=== PATIENT | male | born 1980 | race African-American/Black ===

== ENCOUNTER → 2019-11-01 16:01 | Outpatient (CLI) | payer BC, SELFPAY ==
--- NOTE | 2019-11-01 16:18 | XR_ITS ---
PROCEDURE: XR LUMBAR SPINE MIN 4V CLINICAL INDICATION: LT LUMBAR RADICULITIS Left-sided back pain COMPARISON: No exams were available for comparison FINDINGS: Alignment: Normal alignment. Bony structures: No fracture or dislocation. No lytic or blastic change. Disc spaces: There are minimal endplate osteophytes. There are focal facet sclerotic and hypertrophic changes on the left at L5-S1. Additional findings: IMPRESSION: Mild degenerative changes as described above Dictated by: Guillermo Kelly MD 11/01/2019 16:34 Guillermo Kelly MD in [place] 11/01/2019 16:34
== END ==
PROVIDERS: PCP Family Medicine; Visit Provider Family Medicine
DX: M54.16 Radiculopathy, lumbar region (principal)
CPT/HCPCS: 72110